=== PATIENT | male | born 1990 | race Caucasian/White ===

== ENCOUNTER 2025-06-03 11:39 | Emergency (ER) | payer OTHER ==
[2025-06-03] MEDS ORDERED: Sodium Chloride 0.9% 10 ML Syringe FLUSH PRN (12:04)
[2025-06-03 12:11] LABS: PLATELET COUNT,PLT 324 10^3/uL (150-450); RED BLOOD CELL COUNT 6.00 10^6/uL (4.6-6.2); WHITE BLOOD CELL COUNT,WBC 11.6 10^3/uL (5.0-10.0)
[2025-06-03 12:21] LABS: LYMPHOCYTES PERCENT AUTO 19.5 % (20.5-50.1); NEUTROPHILS PERCENT AUTO 71.9 % (42.2-75.2)
[2025-06-03 12:22] LABS: BASOPHILS PERCENT AUTO 0.7 % (0.0-1.0); EOSINOPHILS PERCENT AUTO 0.7 % (1.0-3.0); MONOCYTES PERCENT AUTO 7.2 % (2-8)
[2025-06-03 12:53] LABS: LACTIC ACID 1.6 mmol/L (0.4-2.0)
[2025-06-03 12:59] LABS: A/G RATIO 1.1; ALANINE AMINOTRANSFERASE,ALT 33 U/L (16-63); ASPARTATE AMNIOTRANSFERASE,AST 16 U/L (15-37); BILIRUBIN TOTAL 0.3 mg/dL (0.2-1.0); BLOOD UREA NITROGEN,BUN 10 mg/dL (7-18); CARBON DIOXIDE,CO2 27 mmol/L (21-32); CHLORIDE,CL 103 mmol/L (98-107); CREATININE 0.83 mg/dL (0.70-1.30); ESTIMATED GFR 119 mL/min (>=60); GLUCOSE RANDOM 106 mg/dL (70-99); LACTATE DEHYDROGENASE,LDH 178 U/L (85-227); PHOSPHORUS 2.4 mg/dL (2.6-4.7); POTASSIUM,K 3.7 mmol/L (3.5-5.1); PROTEIN TOTAL,TP 8.0 g/dL (6.4-8.2); SODIUM,NA 142 mmol/L (136-145); T4 FREE 1.05 ng/dL (0.76-1.46); TSH ULTRASENSITIVE 1.18 uIU/mL (0.36-3.74)
[2025-06-03 13:04] LABS: LYMPHOCYTES PERCENT MAN 21 % (20-50); SEG NEUTROPHILS PERCENT MAN 69 % (42-75)
[2025-06-03 13:05] LABS: EOSINOPHILS PERCENT MAN 1 % (1-3); MONOCYTES PERCENT MAN 9 % (2-8)
[2025-06-03] MEDS: Iopamidol 612 MG/ML 100 ML Bottle IVPUSH ONE (13:08)
== END 2025-06-03 14:40 | disposition home or self-care (01) ==
LOC: DL.ED 11:39
DX: F41.9 Anxiety disorder, unspecified (principal)
CPT/HCPCS: 36415; 70450; 74177; 80053; 83605; 83615; 83735; 84100; 84439; 84443; 85025; 85379; 86140; 93005; 93010; 99283; 99285; Q9967